=== PATIENT | female | born 1970 | race Caucasian/White ===

== ENCOUNTER 2023-05-28 08:31 | Outpatient (CLI) | payer OTHER ==
[2023-05-28] MEDS ORDERED: Iopamidol 370 76% 100 ML VIAL ONE (13:11)
== END 2023-05-28 08:32 | disposition home or self-care (01) ==
LOC: CSHCT 08:31
PROVIDERS: ATTEND Surgery
DX: I73.9 Peripheral vascular disease, unspecified (principal); D25.9 Leiomyoma of uterus, unspecified; K57.30 Diverticulosis of large intestine without perforation or abscess without bleeding
CPT/HCPCS: 75635; Q9967